=== PATIENT | male | born 1955 | race African-American/Black ===

== ENCOUNTER → 2021-04-10 | Day surgery (SDC) | payer MEDICARE ==
[2015-03-02 14:24] VITALS: BP 126/88
[~2021-04-10] MED LIST: ALBU2.5V5 NEB; AMLO-186 PO; AMLO-187 PO; ASPI-630 PO; ATOR80TA72 PO; Albuterol Sulfate NEB; BUDE10.2 IH; CARV6.25 PO; CYAN500T17 PO; Diltiazem Hcl PO; ERGO500089 PO; FERR325T14 PO; FINA5TAB4 PO; FOLI0.8T3 PO; FURO40TA4 PO; GABA600T7 PO; HYDR5TAB11 PO; HYDROmorphone 2 MG/ML VIAL IVP PRN; Hydrocodone/Acetaminophen PO; INSU100I13 SQ; INSU100I17 SQ; INSU100I27 SQ; IV RINGERS,LACTATED 1000ML 1,000 ML IV SCH; LIPA1CAP6 PO; LISI20TA PO; LORA0.5T96 PO; Loperamide Hcl PO; MAGN400T22 PO; MELA5TAB11 SL; MORPHINE SULFATE 2 MG/ML INJ. IVP PRN; MULT1TAB92 PO; NITR0.4T22 SL; PANT40TA77 PO; PROCHLORPERAZINE 10 MG/2 ML VIAL. IVP PRN; RIFA550T4 PO; TAMS0.4C97 PO; THIA100T57 PO; TIOT18CA IH; TRAM-48 PO; TRAZ-118 PO; VENTOLIN HFA18 GM INH; ceFAZolin SODIUM IV Push 1 GM VIAL. IVP PRN; fentaNYL PF VIAL 100 MCG/2 ML VIAL IVP PRN
== END | disposition home or self-care (01) ==
LOC: SURG 06:39
PROVIDERS: ATTEND Specialist
DX: Z53.8 Procedure and treatment not carried out for other reasons (principal)
CPT/HCPCS: J0690

== ENCOUNTER 2021-06-06 09:07 | Day surgery (SDC) | payer MEDICARE, MEDICAID ==
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
[~2021-06-06] VITALS: Ht 175.3 cm; Wt 100.9 kg
[~2021-06-06 09:07] MED LIST changes: +ACET325T21 PO; +DICL20GE TP; +DULO30CA2 PO; +FLUT16SP NS; +HYDROmorphone 2 MG/ML INJ. IVP PRN; -HYDROmorphone 2 MG/ML VIAL IVP PRN; +LACT10PA3 PO; +LIDO1ADH44 TP; +MAGN400O7 PO; +PANT20TA2 PO; +POLY17PO29 PO
[2021-06-06] MEDS ORDERED: PROPOFOL 10 MG/ML (20ML) VIAL. IV ONE (09:40)
[2021-06-06] MEDS ORDERED: ONDANSETRON PF 4 MG/2 ML VIAL. ONE (09:40)
[2021-06-06] MEDS ORDERED: LIDOCAINE 2% PF 5 ML VIAL. ONE ×2 (09:40→13:04)
[2021-06-06] MEDS ORDERED: DEXAMETHASONE SOD PHOS 4 MG/ML VIAL ONE (09:40)
[2021-06-06] MEDS ORDERED: ROCURONIUM 50 MG/5 ML VIAL. ONE ×2 (09:45→11:40)
[2021-06-06] MEDS: INSULIN LISPRO 100 UNIT/ML 3ML VIAL for OP,RR ONLY. SQ PRN ×2 (10:00→15:26)
[2021-06-06] MEDS ORDERED: BUPIVACAINE-EPI 0.5% 30 ML VIAL KIT. ONE ×2 (10:01→13:07)
[2021-06-06] MEDS ORDERED: fentaNYL PF VIAL 100 MCG/2 ML VIAL ONE ×2 (10:21→15:18)
--- NOTE | 2021-06-06 11:05 | PDOC ---
SURGICAL PROGRESS NOTE DATE: 06/06/21 TIME: 11:03 Op Note; Surgeon.....................................Mariano Pre op diag................................right inguinal hernia incarcerated Post op diag...............................same Anesthesia.................................general Procedure..................................repair incarcerated right inguinal hernia Drains.......................................none Fluids........................................see anesthesia sheet Blood loss..................................10cc condition...................................satisfactory Vital Signs Vital Signs Date Time Temp Pulse Resp B/P (MAP) Pulse Ox O2 Delivery O2 Flow Rate FiO2 06/06/21 09:49 98.0 75 20 146/88 98 Room Air 98.0 Labs Laboratory Tests Test 06/06/21 09:52 Glucose (Fingerstick) 257 mg/dL (70-99) Laboratory Tests Test 06/06/21 09:52 Glucose (Fingerstick) 257 mg/dL (70-99) YARIEL CHENG MD Jun 06, 2021 11:05
[2021-06-06] MEDS ORDERED: SUGAMMADEX SODIUM 200 MG/2 ML VIAL. IVP ONE (11:30)
--- NOTE | 2021-06-06 11:44 | HP ---
DATE OF SERVICE: 06/06/2021 ADMIT DATE: 06/06/2021 HISTORY OF PRESENT ILLNESS: The patient is seen for the third time trying to repair a right inguinal hernia. He has COPD and has cirrhosis of the liver and surgery had to be canceled twice before. Now, he has returned for repair of the same. PAST MEDICAL HISTORY: Shows that he does take medicine for diabetes. Has hypertension, takes insulin. He has a history of COPD and still smokes somewhat. He does have a history of cirrhosis, but has had no jaundice and no treatment for that. He does not have any allergies that he is aware of and he has never had his hernia repaired. SOCIAL HISTORY: He does smoke, but does not use illicit drugs or drink alcohol. REVIEW OF SYSTEMS: Negative except for this mass, which is not reducible in the right groin. It has been there and seems to be getting larger and he wishes to have repaired. He does have some shortness of breath at times and has difficulty walking and getting around for long distances because of the swelling of his legs. PHYSICAL EXAMINATION: GENERAL: Shows an alert male in no problems and he is oriented. HEAD, EYES, EARS, NOSE AND THROAT: Grossly normal. CHEST: Clear. HEART: Had no murmurs, heaves, friction, rubs or other abnormalities and the rate was 70 beats per minute and regular. ABDOMEN: Soft. There is no organomegaly, no masses. He did have at this point an inguinal hernia, which is not reducible at this point; it was previously. EXTREMITIES: Grossly normal except for 2+ pitting edema. IMPRESSION: Right inguinal hernia, hypertension, cirrhosis of the liver, diabetes, and he is post-repair of back surgery, which he had some years ago. PLAN: To repair the hernia. He understands the risks and we will proceed. JUDE/GURMEET CARDENAS: Sofi TID: [id number]
[2021-06-06 11:48] LABS: BASO % 1 % (0-3); EOS # 0.2 x10^3/uL (0.0-0.7); EOS % 3 % (0-3); HEMOGLOBIN 14.6 g/dL (13.0-17.5); LYMPH # 1.7 x10^3/uL (1.0-4.8); LYMPH % 27 % (24-48); MEAN CORPUSCULAR HEMOGLOBIN 31 pg (25-35); MEAN CORPUSCULAR HGB CONC 34 g/dL (31-37); MEAN CORPUSCULAR VOLUME 91 fL (79-100); MONO # 0.8 x10^3/uL (0.0-1.1); MONO % 13 % (0-9); NEUT # 3.4 x10^3/uL (1.8-7.7); NEUT % 56 % (31-73); PLATELET COUNT 92 x10^3/uL (140-400); RED BLOOD COUNT 4.72 x10^6/uL (4.30-5.70); RED CELL DISTRIBUTION WIDTH 15.5 % (11.5-14.5); WHITE BLOOD COUNT 6.1 x10^3/uL (4.0-11.0)
[2021-06-06 11:58] LABS: PROTHROMBIN TIME PATIENT 15.1 SEC (11.7-14.0)
[2021-06-06 11:59] LABS: CALCIUM 8.1 mg/dL (8.5-10.1); CREATININE 0.8 mg/dL (0.7-1.3); GFR 118.1; POTASSIUM 3.6 mmol/L (3.5-5.1)
[2021-06-06 12:05] LABS: ALBUMIN 3.1 g/dL (3.4-5.0); ALBUMIN/GLOBULIN RATIO 0.7 (1.0-1.7); TOTAL BILIRUBIN 0.4 mg/dL (0.2-1.0); TOTAL PROTEIN 7.8 g/dL (6.4-8.2)
--- NOTE | 2021-06-06 14:30 | DISCH ---
DISCHARGE INSTRUCTIONS Condition on Discharge Condition on Discharge: Stable Activity After Discharge Activity Instructions for Disc: No restrictions, Avoid exertion Exercise Instruction after Dis: Progress as tolerated Driving Instructions after Dis: Do not drive Weight Bearing Status after Di: No restrictions Diet after Discharge Diet after Discharge: Cardiac, Clear Liquid Diet Texture: Regular Liquid Texture: Thin Liquid Swallowing Supervision: None needed Wound Incision Care Wound/Incision Care: Do not change dressing, May get incision wet Other wound/incision instructi: May shower Checks after Discharge Checks after discharge: Check blood press - daily, Check blood sugar, ac/hs Follow-Up Follow up with: call and make appt to see me in 2-3 weeks Treatment/Equipment after DC Adaptive Equipment Issued: None YARIEL CHENG MD Jun 06, 2021 14:30
--- NOTE | 2021-06-06 14:33 | RAD ---
EXAM: Abdomen, single view. HISTORY: Incorrect needle count postop. COMPARISON: 12/08/2014. FINDINGS: A frontal view of the abdomen is obtained. There is a 5 mm radiodense structure overlying t he left upper quadrant, likely overlying the patient. The appearance does not favor a retained surgic al needle. No retained surgical needle is seen. There is moderate colonic stool. There is no bowel ob struction. IMPRESSION: No convincing retained surgical needle. Electronically signed by: Linda Merlso MD (06/06/2021 2:31 PM) [id number]
[2021-06-06] MEDS ORDERED: OXYC1TAB19 PO (14:59)
[2021-06-06] MEDS: fentaNYL PF VIAL 100 MCG/2 ML VIAL IVP PRN ×2 (15:25→16:16)
[2021-06-06] MEDS ORDERED: INSULIN LISPRO 100 UNIT/ML 3ML VIAL for OP,RR ONLY. SQ ONE ×2 (15:30)
[2021-06-06] MEDS ORDERED: oxyCODONE/APAP 7.5/325 1 TAB TABLET PO ONE (15:30)
[2021-06-06 16:30] VITALS: BP 134/81
--- NOTE | 2021-06-07 01:06 | OP ---
DATE OF SURGERY: 06/06/2021 SURGEON: Last Quintana MD PREOPERATIVE DIAGNOSIS: Incarcerated right inguinal hernia. POSTOPERATIVE DIAGNOSIS: Incarcerated right inguinal hernia. ANESTHESIA: General. PROCEDURE: Repair of incarcerated right inguinal hernia. TECHNIQUE: Under general anesthesia, the patient was properly prepped and draped in a routine fashion. The patient had a liver disease, distended abdomen, was obese and it was difficult to do this procedure simply because of the size, however, we made a transverse incision following skin lines in the right groin and carried down through the skin. We got into the subcutaneous and then used cautery to go down to the fascia dividing the fat. One or two veins were cauterized and one laterally had to be sutured and tied with 3-0 Vicryl. We then identified the external oblique aponeurosis, made an incision in it with a 15 blade, spread up under it with scissors and then opened down to the external inguinal ring. Having done that, we then proceeded to identify the large hernia that was there. Once he was relaxed, we could actually reduce the contents, which we could not do with him awake. We encircled the cord structures at the pubic tubercle and pulled up with Kaylin drain. We then divided the cremasterics and all the tissues adherent to and there was a lot of scar tissue there. We reopened the cord structures up and identified the sac. There was also preperitoneal fat lateral to the cord structures. This was dissected free. We then dissected the sac completely free with some difficulty because of the scarring and did not enter the peritoneal cavity. We slowly went and dissected the sac high up into the internal inguinal ring. We then had 2 large PerFix plugs and we used these because the defect was so large. We sutured them together with interrupted 2-0 Prolene and then reduced the sac and also the preperitoneal fat and placed this in and this afforded good reduction of the hernia and stayed in place. We then sutured these in place using 3-0 Vicryl. These were well up into the internal inguinal ring. We then placed a patch at the pubic tubercle using #1 Prolene. We sutured two of them there. We took one taking the shelving edge of Poupart's ligament, carried it laterally and ran it up past the internal inguinal ring. we had to suture them inferiorly to Poupart's ligament and superiorly to the transversalis fascia to keep them in place. They did not come out, but we wanted to reinforce this. The medial portion of the patch was approximated with transversalis fascia using the previously placed #0 Prolene suture and carried this well up past the internal ring and around back down to Poupart's ligament. It should be noted that the patch was fashioned so that it would encompass and go around the cord structures and was cut so that this would happen. We then sutured it together using 2-0 Prolene so that the opening to the cord structures would be adequate and not restricted. The hernia was then inspected as well as the patch was then placed and the hernia was reduced. Cord structures were normal and all appeared to be satisfactory. We then injected 0.5% Marcaine with epinephrine for anesthesia into the sutured area. There was no further bleeding. We then irrigated the wound with saline and then approximated the external oblique aponeurosis with running 2-0 Prolene. This having been done, we then anesthetized this with 0.5% Marcaine with epinephrine. Subcutaneous was irrigated again with saline and approximated with interrupted 4-0 Vicryl and the skin was closed using a subcuticular 5-0 Vicryl. The procedure was terminated as Tegaderm dressings were applied. The blood loss was about 25 mL. No drains were used. Fluids given can be obtained from the anesthesia sheet and the condition of the patient was satisfactory as he has returned to the recovery room. JAMIE DR: Sofi TID: [id number]
== END 2021-06-06 16:55 | disposition home or self-care (01) ==
LOC: SURG 09:07
PROVIDERS: ATTEND Specialist
DX: K40.30 Unilateral inguinal hernia, with obstruction, without gangrene, not specified as recurrent (principal); I10 Essential (primary) hypertension; J44.9 Chronic obstructive pulmonary disease, unspecified; E11.9 Type 2 diabetes mellitus without complications; N40.0 Benign prostatic hyperplasia without lower urinary tract symptoms; F41.9 Anxiety disorder, unspecified; F32.9 Major depressive disorder, single episode, unspecified; F17.210 Nicotine dependence, cigarettes, uncomplicated; Z79.82 Long term (current) use of aspirin; Z79.4 Long term (current) use of insulin; Z79.899 Other long term (current) drug therapy; Z98.890 Other specified postprocedural states; Z82.49 Family history of ischemic heart disease and other diseases of the circulatory system; Z72.89 Other problems related to lifestyle
CPT/HCPCS: 36415; 49507; 74018; 80053; 82962; 85025; 85610; A4930; A6258; A6402; C1781; J0690; J1100; J1815; J2405; J2704; J3010; J3490